=== PATIENT | female | born 1990 | race African-American/Black ===

== ENCOUNTER 2016-07-26 23:18 | Emergency (ER) | payer MEDICAID | END 2016-07-27 03:59 | disposition home or self-care (01) | LOC: ER 23:18 | DX: N39.0 Urinary tract infection, site not specified (principal); R19.7 Diarrhea, unspecified | CPT/HCPCS: 36415; 71020; 80053; 81001; 81025; 82947; 83690; 85025; 87088; 87804; 93005 ==